=== PATIENT | male | born 1955 | race Two or more races ===

== ENCOUNTER 2021-02-06 14:08 | Inpatient (IN) | payer MEDICARE, OTHER ==
[~2021-02-06] VITALS: Ht 144.8 cm; Wt 72.1 kg
[2021-02-06] MEDS ORDERED: BISA5TAB10 PO (15:03)
[2021-02-06] MEDS ORDERED: MIRT-90 PO (15:03)
[2021-02-06] MEDS ORDERED: BUSP5TAB3 PO (15:03)
[2021-02-06] MEDS ORDERED: MULT-754 PO (15:03)
[2021-02-06] MEDS ORDERED: GABA-532 PO (15:03)
[2021-02-06] MEDS ORDERED: DOCU-141 PO (15:03)
[2021-02-06] MEDS ORDERED: INSU100V3 SQ (15:03)
[2021-02-06] MEDS ORDERED: ACET-868 PO ×2 (15:03)
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
--- NOTE | 2021-02-06 15:31 | NUR ---
PHLEBATOMIST AT THE BEDSIDE
[2021-02-06 15:49] LABS: CARBON DIOXIDE 29 mmol/L (21-32); CHLORIDE 108 mmol/L (98-107); CREATININE 1.1 mg/dL (0.6-1.3); GLUCOSE 90 mg/dL (74-106); POTASSIUM 4.1 mmol/L (3.5-5.1); SODIUM SERUM 146 mmol/L (136-145); UREA NITROGEN, BLOOD 16 mg/dL (7-18)
[2021-02-06 15:50] LABS: BASOPHILS # (AUTO) 0.2 K/uL (0.0-0.2); BASOPHILS % (AUTO) 2.4 % (0.0-2.0); EOSINOPHILS % (AUTO) 0.3 % (0.0-6.0); HEMATOCRIT 45 % (39-51); HEMOGLOBIN 14.7 g/dL (13.5-17.5); LYMPHOCYTES # (AUTO) 1.9 K/uL (0.8-4.8); LYMPHOCYTES % (AUTO) 28.1 % (20.0-44.0); MEAN CORPUSCULAR HGB CONC 33 g/dl (31.0-36.0); MEAN CORPUSCULAR VOLUME 96 fL (80-96); MONOCYTES # (AUTO) 0.4 K/uL (0.1-1.30); MONOCYTES % (AUTO) 6.5 % (2.0-12.0); NEUTROPHILS # (AUTO) 4.3 K/uL (1.8-8.9); NEUTROPHILS % (AUTO) 62.7 % (43.0-81.0); PLATELET COUNT (AUTO) 222 K/uL (150-450); RED BLOOD CELL COUNT(AUTO) 4.69 MIL/uL (4.5-6.0); WHITE BLOOD COUNT (AUTO) 6.8 K/uL (4.3-11.0)
--- NOTE | 2021-02-06 15:51 | NUR ---
MOVE SHEET SUBMITTED AND CALLED FOR BED.
[2021-02-06 15:55] LABS: ALANINE AMINOTRANSFERASE 21 U/L (12-78); ALBUMIN 3.6 g/dL (3.4-5.0); ALCOHOL, BLOOD < 3 mg/dL (0-0); ALKALINE PHOSPHATASE 74 U/L (46-116); ASPARTATE AMINOTRANSFERASE 18 U/L (15-37); BILIRUBIN,DIRECT 0.1 mg/dL (0.0-0.2); BILIRUBIN,TOTAL 0.4 mg/dL (0.2-1.0); TOTAL PROTEIN, SERUM 7.3 g/dL (6.4-8.2)
[2021-02-06 16:38] LABS: ACETAMINOPHEN < 2 ug/ml (10-30)
--- NOTE | 2021-02-06 18:25 | NUR ---
KRISTEN BASS [phone]
--- NOTE | 2021-02-06 19:21 | NUR ---
REPORT GIVEN TO NURSE GILL
--- NOTE | 2021-02-06 20:25 | NUR ---
REPORT GIVEN TO SALO VELA
[2021-02-06 21:00] VITALS: BP 118/71
[2021-02-06] MEDS ORDERED: BLOOD SUGAR DIAGNOSTIC 1 EACH STRIP IN ONE (21:30)
[2021-02-06] MEDS ORDERED: ACETAMINOPHEN 325 MG TABLET PO PRN (21:30)
[2021-02-06] MEDS ORDERED: MAGNESIUM HYDROXIDE 30 ML UDC PO PRN (21:30)
[2021-02-06] MEDS ORDERED: MAG HYDROX/AL HYDROX/SIMETH 30 ML UDC PO PRN (21:30)
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
[2021-02-06] MEDS ORDERED: BISACODYL (5 MG) 5 MG TABLET.DR PO PRN (22:00)
[2021-02-06] MEDS ORDERED: DEXTROSE 50%-WATER 50 ML DISP.SYRIN IV PRN (22:00)
[2021-02-06] MEDS: BLOOD SUGAR DIAGNOSTIC 1 EACH STRIP IN SCH (22:15)
[2021-02-06] MEDS: INSULIN REGULAR, HUMAN 100 UNIT/ML 3 ML VIAL SQ PRN (22:18)
--- NOTE | 2021-02-06 22:18 | NUR ---
RN NOTE: REFUSED INSULIN PATIENT'S BLOOD SUGAR IS 149 MG/DL & REFUSED 2 UNITS OF SSI DESPITE OF RISKS AND BENEFITS EXPLANATIONS.
--- NOTE | 2021-02-07 05:41 | NUR ---
RN NOTE PATIENT SLEPT WELL AT NIGHT, REMAINS CONFUSED, RESTRICTED AND ISOLATIVE.
[2021-02-07 07:05] LABS: CHOLESTEROL 196 mg/dL (<200); HDL CHOLESTEROL 56 mg/dL (40-60); LDL 124 mg/dL (0-99); TRIGLYCERIDES 88 mg/dL (30-150)
[2021-02-07 07:08] LABS: ALBUMIN 3.3 g/dL (3.4-5.0); BILIRUBIN,TOTAL 0.9 mg/dL (0.2-1.0); CALCIUM, SERUM 9.2 mg/dL (8.5-10.1); CREATININE 1.1 mg/dL (0.6-1.3); POTASSIUM 3.7 mmol/L (3.5-5.1)
--- NOTE | 2021-02-07 07:19 | NUR ---
RN NOTE CALLED PATIENT'S DAUGHTER SKIP AT [phone] AND LEFT A VOICEMAIL REGARDING PATIENT'S ADMISSION.
--- NOTE | 2021-02-07 07:29 | NUR ---
PT REFUSES ACCU CHECK. PT REFUSES VITALS.
[2021-02-07] MEDS: BLOOD SUGAR DIAGNOSTIC 1 EACH STRIP IN SCH ×4 (07:30→22:00)
[2021-02-07] MEDS: MULTIVIT W/MINERALS 1 TAB TABLET PO SCH (08:22)
[2021-02-07] MEDS: DOCUSATE SODIUM 100 MG CAPSULE PO SCH (08:22)
--- NOTE | 2021-02-07 09:00 | NUR ---
PT REFUSES AM MEDS. WILL CONTINUE TO MONITOR.
--- NOTE | 2021-02-07 09:41 | NUR ---
TRACI Initial Discharge Plan: Patient currently resides at [facility]. TRACI contacted Alexys parnell if pt is welcomed back and will let this SW know if pt is accepted back. SW will coordinate discharge with family and MD.
--- NOTE | 2021-02-07 09:42 | NUR ---
Treatment Plan: Pt unable to sign treatment plan. Pt is very confused.
[2021-02-07] MEDS: DIVALPROEX SODIUM 125 MG CAP.SPRINK PO SCH ×3 (10:40→16:48)
--- NOTE | 2021-02-07 16:50 | NUR ---
PT REFUSES ACCU CHECK. PT REFUSES PM MEDS. WILL CONTINUE TO MONITOR.
--- NOTE | 2021-02-07 20:26 | NUR ---
RN OPENING NOTE: RECEIVED PATIENT RESTING IN BED AND NOTED TO BE WALKING AROUND LATER. NO ACUTE S/S OF DISTRESS NOTED. NO C/O PAIN VERBALIZED AT THIS TIME. PT REFUSED PM VITALS. PATIENT IS A & O X 1, CONFUSED, QUIET, RESTRICTED, WITHDRAWN, FLAT AFFECT, REFUSES TO ANSWER ANY QUESTION, REFUSED SNACKS WHEN OFFERED AND WALKED AWAY, UNCOOPERATIVE, GUARDED, BED IN LOW AND LOCKED POSITION, SIDE RAILS UP X2. WILL CONTINUE TO MONITOR Q 15 MINUTES FOR SAFETY AND BEHAVIOR.
[2021-02-07] MEDS: MIRTAZAPINE 15 MG TABLET PO SCH (21:14)
[2021-02-07] MEDS: GABAPENTIN 300 MG CAPSULE PO SCH (21:14)
[2021-02-07] MEDS: TEMAZEPAM 7.5 MG CAPSULE PO PRN (22:12)
--- NOTE | 2021-02-07 22:13 | NUR ---
RN NOTE: INSOMNIA PATIENT VERBALIZED THAT HE IS UNABLE TO SLEEP AND KEEP PACING IN THE HALLWAY. PRN RESTORIL 7.5 MG 1 CAP PO ADMINISTERED. WILL CONTINUE TO MONITOR.
--- NOTE | 2021-02-07 22:14 | NUR ---
RN NOTE: REFUSED ACCU CHECK PATIENT REFUSED ACCU CHECK X 3 DESPITE OF RISKS AND BENEFITS EXPLANATIONS, UNCOOPERATIVE AND EASILY AGITATED, WALKS AWAY WHEN REDIRECTED.
[2021-02-08] MEDS: BLOOD SUGAR DIAGNOSTIC 1 EACH STRIP IN SCH ×4 (07:51→21:34)
[2021-02-08] MEDS: INSULIN REGULAR, HUMAN 100 UNIT/ML 3 ML VIAL SQ PRN ×3 (07:52→17:25)
[2021-02-08 08:00] VITALS: BP 130/68
[2021-02-08] MEDS: DIVALPROEX SODIUM 125 MG CAP.SPRINK PO SCH ×3 (08:15→16:27)
[2021-02-08] MEDS: DOCUSATE SODIUM 100 MG CAPSULE PO SCH (08:15)
[2021-02-08] MEDS: MULTIVIT W/MINERALS 1 TAB TABLET PO SCH (08:15)
[2021-02-08 16:00] VITALS: BP 115/75
[2021-02-08] MEDS: MIRTAZAPINE 15 MG TABLET PO SCH (21:34)
[2021-02-08] MEDS: GABAPENTIN 300 MG CAPSULE PO SCH (21:34)
[2021-02-08] MEDS: TEMAZEPAM 7.5 MG CAPSULE PO PRN (21:34)
[2021-02-09] MEDS: BLOOD SUGAR DIAGNOSTIC 1 EACH STRIP IN SCH ×4 (07:35→21:16)
[2021-02-09 08:00] VITALS: BP 130/70
[2021-02-09] MEDS: DIVALPROEX SODIUM 125 MG CAP.SPRINK PO SCH ×3 (08:33→16:06)
[2021-02-09] MEDS: MULTIVIT W/MINERALS 1 TAB TABLET PO SCH (08:33)
[2021-02-09] MEDS: DOCUSATE SODIUM 100 MG CAPSULE PO SCH (08:33)
[2021-02-09 16:00] VITALS: BP 122/75
[2021-02-09] MEDS: INSULIN REGULAR, HUMAN 100 UNIT/ML 3 ML VIAL SQ PRN (16:49)
--- NOTE | 2021-02-09 19:42 | NUR ---
Patient currently resting in chair. No distress noted. Chest rise and fall even and unlabored. Will monitor for behaviors.
[2021-02-09 20:00] VITALS: BP 142/86
--- NOTE | 2021-02-09 20:00 | NUR ---
Patient refused 2000 temperature despite explaining to patient procedure and importance.
[2021-02-09] MEDS: MIRTAZAPINE 15 MG TABLET PO SCH (21:15)
[2021-02-09] MEDS: GABAPENTIN 300 MG CAPSULE PO SCH (21:16)
[2021-02-10] MEDS: BLOOD SUGAR DIAGNOSTIC 1 EACH STRIP IN SCH ×4 (07:58→21:26)
[2021-02-10 08:00] VITALS: BP 127/74
[2021-02-10] MEDS: DOCUSATE SODIUM 100 MG CAPSULE PO SCH (08:01)
[2021-02-10] MEDS: LORAZEPAM 0.5 MG TABLET PO PRN (08:01)
[2021-02-10] MEDS: DIVALPROEX SODIUM 125 MG CAP.SPRINK PO SCH ×3 (08:01→16:48)
[2021-02-10] MEDS: MULTIVIT W/MINERALS 1 TAB TABLET PO SCH (08:01)
[2021-02-10 16:00] VITALS: BP 142/73
[2021-02-10 20:31] VITALS: BP 116/74
[2021-02-10] MEDS: MIRTAZAPINE 15 MG TABLET PO SCH (21:11)
[2021-02-10] MEDS: GABAPENTIN 300 MG CAPSULE PO SCH (21:11)
[2021-02-10] MEDS: TEMAZEPAM 7.5 MG CAPSULE PO PRN (22:30)
--- NOTE | 2021-02-10 22:30 | NUR ---
GPS-RN NOTES: INSOMNIA PATIENT UNABLE TO SLEEP. PRN RESTORIL 7.5MG PO GIVEN ORDERED. WILL CONTINUE TO MONITOR.
[2021-02-11] MEDS: BLOOD SUGAR DIAGNOSTIC 1 EACH STRIP IN SCH ×4 (07:42→21:28)
[2021-02-11 08:00] VITALS: BP 128/74
[2021-02-11] MEDS: MULTIVIT W/MINERALS 1 TAB TABLET PO SCH (08:36)
[2021-02-11] MEDS: DOCUSATE SODIUM 100 MG CAPSULE PO SCH (08:36)
[2021-02-11] MEDS: DIVALPROEX SODIUM 125 MG CAP.SPRINK PO SCH ×3 (08:37→16:35)
--- NOTE | 2021-02-11 09:00 | NUR ---
RN NOTE- PT ALERT CONFUSED FLAT AFFECT MED COMPLIANT
[2021-02-11 16:00] VITALS: BP 109/75
--- NOTE | 2021-02-11 19:35 | NUR ---
GPS RN NOTES RECEIVED INSIDE HIS ROOM,WALKING AROUND WITH FLAT AFFECT,REFUSED TO ANSWER QUESTION,POOR EYE CONTACT,UNPREDICTABLE.WILL CONTINUE TO MONITOR BEHAVIOR
--- NOTE | 2021-02-11 19:40 | NUR ---
GPS RN NOTES FAMILY CAME THIS TIME AND SHOWER PATIENT.
[2021-02-11 20:17] VITALS: BP 110/55
[2021-02-11] MEDS: GABAPENTIN 300 MG CAPSULE PO SCH (21:28)
[2021-02-11] MEDS: MIRTAZAPINE 15 MG TABLET PO SCH (21:28)
--- NOTE | 2021-02-11 22:00 | NUR ---
GPS RN NOTES REFUSED BLOOD SUGAR CHECK AND REGULAR SCHEDULED MEDICATIONS
[2021-02-12] MEDS: TEMAZEPAM 7.5 MG CAPSULE PO PRN ×2 (00:01→22:18)
--- NOTE | 2021-02-12 00:01 | NUR ---
GPS RN NOTES AWAKE,PACING INSIDE HIS ROOM,OFFERED SLEEPING AND HE TOOKMHIS RESTORIL 7.5MG PO ORDERED.
--- NOTE | 2021-02-12 07:00 | NUR ---
GPS RN NOTES STILL ON BED SLEEPING,PACING IN THE ROOM WHEN AWAKE.UNPREDICTABLE.
[2021-02-12] MEDS: BLOOD SUGAR DIAGNOSTIC 1 EACH STRIP IN SCH ×4 (07:30→22:17)
[2021-02-12 08:00] VITALS: BP 133/79
[2021-02-12] MEDS: DIVALPROEX SODIUM 125 MG CAP.SPRINK PO SCH ×3 (08:36→16:55)
[2021-02-12] MEDS: MULTIVIT W/MINERALS 1 TAB TABLET PO SCH (08:36)
[2021-02-12] MEDS: LORAZEPAM 0.5 MG TABLET PO PRN (08:36)
[2021-02-12] MEDS: DOCUSATE SODIUM 100 MG CAPSULE PO SCH (08:36)
[2021-02-12 16:00] VITALS: BP 113/75
[2021-02-12 20:00] VITALS: BP 114/71
[2021-02-12] MEDS: INSULIN REGULAR, HUMAN 100 UNIT/ML 3 ML VIAL SQ PRN (22:17)
[2021-02-12] MEDS: MIRTAZAPINE 15 MG TABLET PO SCH (22:18)
[2021-02-12] MEDS: GABAPENTIN 300 MG CAPSULE PO SCH (22:18)
--- NOTE | 2021-02-12 22:18 | NUR ---
GPS RN NOTE - INSOMNIA PT NOTED WITH TALKING TO SELF AND DIFFICULTY FALLING ASLEEP. ADMINISTERED RESTORIL ORDERED. WILL REASSESS FOR SLEEP IN 1 HOUR.
[2021-02-13] MEDS: LORAZEPAM 0.5 MG TABLET PO PRN (00:35)
--- NOTE | 2021-02-13 00:35 | NUR ---
GPS RN NOTE - AGITATION AND RESTLESSNESS PT NOTED WITH AGITATIONS, RESTLESSNESS, AND UNPREDICTABLE BEHAVIOR; RESTORIL NOT EFFECTIVE. PT SUDDENLY TOOK RN'S BELONGINGS AND WALKED AWAY WITH IT. PT ATTEMPTED TO PUSH DOOR CLOSE WITH STATE HISTORICAL SOCIETY DIRECTOR & RN IN PT'S ROOM. 2 SECURITY CAME TO ASSIST PATIENT TO SIT IN GERICHAIR. PT SITTING IN GERICHAIR AND ATIVAN ADMINISTERED ORDERED. WILL MONITOR FOR AGITATION AND RESTLESSNESS. PT SITTING COMFORTABLE IN GERICHAIR AT THIS TIME.
--- NOTE | 2021-02-13 06:28 | NUR ---
GPS RN NOTE PT A/OX1 WITH DISORGANIZED THOUGHTS. TOLERATING R/A WELL. PT SLEEPING AT THIS TIME. BS AT 0627 IS 85. ALL NEEDS MET AT THIS TIME. SAFETY MEASURES IN PLACE. PT IN STABLE CONDITION, WILL ENDORSE PLAN OF CARE TO ONCOMING MORNING RN.
[2021-02-13] MEDS: INSULIN REGULAR, HUMAN 100 UNIT/ML 3 ML VIAL SQ PRN ×2 (06:50→17:27)
[2021-02-13] MEDS: BLOOD SUGAR DIAGNOSTIC 1 EACH STRIP IN SCH ×4 (06:50→22:00)
--- NOTE | 2021-02-13 07:30 | NUR ---
PT RECEIVED RESTING COMFORTABLE IN BED. NO S/S OR C/O PAIN OR DISTRESS NOTED. SIDE RAILS UP X2, CALL LIGHT LEFT WITHIN REACH. WILL CONTINUE PLAN OF CARE.
[2021-02-13 08:00] VITALS: BP 105/62
[2021-02-13] MEDS: MULTIVIT W/MINERALS 1 TAB TABLET PO SCH (09:38)
[2021-02-13] MEDS: DOCUSATE SODIUM 100 MG CAPSULE PO SCH (09:38)
[2021-02-13] MEDS: DIVALPROEX SODIUM 125 MG CAP.SPRINK PO SCH ×3 (09:39→17:08)
[2021-02-13 16:00] VITALS: BP 130/69
--- NOTE | 2021-02-13 18:35 | NUR ---
CHANGE OF SHIFT REPORT PT RESTING COMFORTABLY IN BED. NO S/S OR C/O PAIN OR DISTRESS NOTED. SIDE RAILS UP X2. PT KEPT CLEAN, DRY, AND COMFORTABLE. NO SIGNIFICANT CHANGES SINCE PREVIOUS SHIFT. WILL GIVE REPORT TO OBDULIO LEONG.
--- NOTE | 2021-02-13 20:26 | NUR ---
GPS RN NOTES PATIENT REFUSED 8PM VITAL SIGNS CHECK. PATIENT'S IN NO ACUTE DISTRESS AT THAT TIME.
[2021-02-13] MEDS: MIRTAZAPINE 15 MG TABLET PO SCH ×2 (21:12→22:00)
[2021-02-13] MEDS: GABAPENTIN 300 MG CAPSULE PO SCH ×2 (21:14→22:00)
--- NOTE | 2021-02-13 22:08 | NUR ---
GPS RN NOTES PATIENT REFUSED SCHEDULED MEDICATIONS AT 2200 AND HS BLOOD SUGAR CHECK/INSULIN. RISKS HAVE BEEN EXPLAINED TO THE PATIENT. WILL CONTINUE TO MONITOR THE PATIENT.
--- NOTE | 2021-02-13 22:08 | NUR ---
GPS RN NOTES PATIENT REFUSED SCHEDULED MEDICATIONS AT 2200 AND HS BLOOD SUGAR CHECK. RISKS HAVE BEEN EXPLAINED TO THE PATIENT. WILL CONTINUE TO MONITOR THE PATIENT.
[2021-02-14] MEDS: BLOOD SUGAR DIAGNOSTIC 1 EACH STRIP IN SCH ×4 (07:30→22:29)
[2021-02-14 08:00] VITALS: BP 129/78
[2021-02-14] MEDS: DOCUSATE SODIUM 100 MG CAPSULE PO SCH (08:57)
[2021-02-14] MEDS: MULTIVIT W/MINERALS 1 TAB TABLET PO SCH (08:57)
[2021-02-14] MEDS: DIVALPROEX SODIUM 125 MG CAP.SPRINK PO SCH ×3 (08:57→16:54)
--- NOTE | 2021-02-14 08:58 | NUR ---
PATIENT REFUSED SCHEDULED MEDICATIONS AT 0900 AND HS BLOOD SUGAR CHECK/INSULIN. RISKS HAVE BEEN EXPLAINED TO THE PATIENT. WILL CONTINUE TO MONITOR THE PATIENT.
--- NOTE | 2021-02-14 12:00 | NUR ---
PT RIGHT ADVOCATE CONTACTED PT. PT RIGHT ADVOCATE UNABLE TO COMMUNICATE WITH PATIENT. PT RIGHT ADVOCATE SPOKE WITH RN AND ASKED TO RELAY PT THE FOLLOWING MESSAGE: "IF YOU FEEL THE NEED TO APPEAL THE HOLD COURT DECISION, PT HAS THE RIGHT TO DO SO". MESSAGE DELIVERED TO PT IN [place].
--- NOTE | 2021-02-14 12:05 | NUR ---
Court Hearing: Patient's court hearing for 2790 was today and it was upheld for GD and danger to others.
[2021-02-14 16:16] VITALS: BP 122/72
[2021-02-14 20:06] VITALS: BP 136/79
[2021-02-14] MEDS: GABAPENTIN 300 MG CAPSULE PO SCH (22:10)
[2021-02-14] MEDS: MIRTAZAPINE 15 MG TABLET PO SCH (22:10)
--- NOTE | 2021-02-14 22:30 | NUR ---
RN NOTES: PATIENT REFUSED MEDICATION AT 2200, BS CHECK, OFFERED SEVERAL TIMES ZAIN STRONGLY REFUSED.
[2021-02-15] MEDS: BLOOD SUGAR DIAGNOSTIC 1 EACH STRIP IN SCH ×4 (07:30→21:52)
[2021-02-15 08:00] VITALS: BP 119/78
[2021-02-15] MEDS: DOCUSATE SODIUM 100 MG CAPSULE PO SCH (09:00)
[2021-02-15] MEDS: DIVALPROEX SODIUM 125 MG CAP.SPRINK PO SCH (09:00)
[2021-02-15] MEDS: MULTIVIT W/MINERALS 1 TAB TABLET PO SCH (09:00)
[2021-02-15] MEDS ORDERED: OLANZAPINE 10 MG VIAL IM STA (09:23)
--- NOTE | 2021-02-15 09:25 | NUR ---
RN-NOTES PATIENT REFUSED ALL 0900AM MEDICATIONS INCLUDING DEPAKOTE SPRINKLE 250MG P.O,COLACE 100 MG P.O AND MULTI VIT. 1 TAB. EXPLAINED RISK AND BENEFITS BUT PATIENT GOT ANGRY WITH THREATENING GESTURE. DR. DAN AT BEDSIDE WITH VERBAL ORDER OF ZYPREXA 10MG IM STAT. NOTED AND CARRIED OUT.
[2021-02-15 16:00] VITALS: BP 121/81
--- NOTE | 2021-02-15 19:21 | NUR ---
RN-NOTES PATIENT REFUSED ACCU CHECK THIS SHIFT DESPITE EXPLANATIONS RISK AND BENEFITS. OFFERED X3
[2021-02-15] MEDS: OLANZAPINE ZYDIS 5 MG TAB.RAPDIS PO SCH (21:00)
[2021-02-15] MEDS: DIVALPROEX SODIUM 500 MG TABLET.DR PO SCH (21:00)
[2021-02-15] MEDS: GABAPENTIN 300 MG CAPSULE PO SCH (21:52)
--- NOTE | 2021-02-15 21:53 | NUR ---
GPS/CLINICAL SUPPORT NURSE NOTES: PT. REFUSED HS MEDS AND ACCUCHECK. OFFERED 3X. EXPLAINED RISK AND BENEFITS. PT. STILL REFUSED. WILL CONTINUE TO MONITOR.
[2021-02-16] MEDS: BLOOD SUGAR DIAGNOSTIC 1 EACH STRIP IN SCH ×4 (07:30→21:04)
[2021-02-16 08:00] VITALS: BP 126/85
[2021-02-16] MEDS: MULTIVIT W/MINERALS 1 TAB TABLET PO SCH (08:25)
[2021-02-16] MEDS: DOCUSATE SODIUM 100 MG CAPSULE PO SCH (08:25)
[2021-02-16] MEDS: OLANZAPINE ZYDIS 5 MG TAB.RAPDIS PO SCH ×3 (08:25→21:00)
[2021-02-16] MEDS: DIVALPROEX SODIUM 500 MG TABLET.DR PO SCH ×3 (08:26→21:00)
--- NOTE | 2021-02-16 17:02 | NUR ---
RN-NOTES PATIENT REFUSED ACCU CHECK THIS SHIFT DESPITE EXPLANATIONS RISK AND BENEFITS. OFFERED X3
[2021-02-16 19:53] VITALS: BP 140/77
[2021-02-16] MEDS: GABAPENTIN 300 MG CAPSULE PO SCH ×2 (21:04→21:37)
--- NOTE | 2021-02-16 22:00 | NUR ---
GPS-RN NOTES: PATIENT REFUSED BLOOD SUGAR TO BE CHECKED. DESPITE OF EXPLANATION GIVEN BY NURSE TO WHY IT IS IMPORTANT BUT PT CONTINUED TO REFUSE. WILL CONTINUE TO MONITOR.
[2021-02-16] MEDS: TEMAZEPAM 7.5 MG CAPSULE PO PRN (22:17)
--- NOTE | 2021-02-16 22:17 | NUR ---
PS-RN NOTES: INSOMNIA PATIENT IS UNABLE TO SLEEP. PRN RESTORIL 7.5MG PO GIVEN ORDERED. WILL CONTINUE TO MONITOR.
[2021-02-17] MEDS: BLOOD SUGAR DIAGNOSTIC 1 EACH STRIP IN SCH ×2 (07:30→12:00)
[2021-02-17 08:00] VITALS: BP 121/61
[2021-02-17] MEDS: OLANZAPINE ZYDIS 5 MG TAB.RAPDIS PO SCH (08:09)
[2021-02-17] MEDS: LORAZEPAM 0.5 MG TABLET PO PRN (08:09)
[2021-02-17] MEDS: DIVALPROEX SODIUM 500 MG TABLET.DR PO SCH (08:09)
[2021-02-17] MEDS: DOCUSATE SODIUM 100 MG CAPSULE PO SCH (08:09)
[2021-02-17] MEDS: MULTIVIT W/MINERALS 1 TAB TABLET PO SCH (08:09)
--- NOTE | 2021-02-17 08:12 | NUR ---
SW Discharge Note: Patient will be discharged to a locked care home facility to [facility] [address] [place] [address]; ([phone]). Please arrange ambulance transportation. Metal Turner spoke with Janeth, Security Associate at [facility]; ([phone]), who stated patient will be accepted at facility today. Patients daughter Aditya ([phone]) is aware and agreeable. Patient is alert and oriented x2, and is not able to plan for self-care at this time, but is willing to accept care provided for care at the facility. Patient denies any suicidal or homicidal ideations. Patient is aware and agreeable with discharge plans. Patient will continue to follow-up with her (Psychiatrist ) Dr. Gutierrez [address] [facility] [address], [place] [address]; ([phone]) and General Laborer Dr. Contreras [address] [facility] [address], [place] [address]; ([phone]). Patient presents with euthymic mood and congruent affect.
--- NOTE | 2021-02-17 12:46 | NUR ---
GPS/RN REPORT GIVEN TO SANTY LEONG AT [facility] [phone]
--- NOTE | 2021-02-17 13:45 | NUR ---
GPS/RN PT DISCHARGED TO [facility] VIA AMBULANCE. EXIT CARE AND PRESCRIPTIONS PROVIDED. PT REFUSED TO SIGN,. PT IS AMBULATORY , VSS, PROPERTY RETURNED NO SI OR HI AT THE TIME OF D/C REPORTED
== END 2021-02-17 13:45 | DRG 885 ==
LOC: ER 14:14 → GPS 20:02
PROVIDERS: ADMIT Psychiatry & Neurology Psychosomatic Medicine; ATTEND Nurse Practitioner Acute Care
DX: F39 Unspecified mood [affective] disorder (principal); F01.50 Vascular dementia, unspecified severity, without behavioral disturbance, psychotic disturbance, mood disturbance, and anxiety; E11.9 Type 2 diabetes mellitus without complications; Z79.4 Long term (current) use of insulin; G20 Parkinson's disease; F32.A Depression, unspecified; F41.9 Anxiety disorder, unspecified; Z68.34 Body mass index [BMI] 34.0-34.9, adult; F29 Unspecified psychosis not due to a substance or known physiological condition; F25.9 Schizoaffective disorder, unspecified; Z73.6 Limitation of activities due to disability; E66.9 Obesity, unspecified; F02.80 Dementia in other diseases classified elsewhere, unspecified severity, without behavioral disturbance, psychotic disturbance, mood disturbance, and anxiety
CPT/HCPCS: 36415; 80048-TC; 80053-TC; 80061-TC; 80076-TC; 80164-TC; 82962-TC; 85025-TC; 87081-TC; 97112-TC; 97116-TC; 97530-TC; C9803; G0480; J1815; J3490

== ENCOUNTER 2022-04-18 16:06 | Inpatient (IN) | payer MEDICARE, OTHER ==
[~2022-04-18] VITALS: Ht 167.6 cm; Wt 67.1 kg
[~2022-04-18 16:06] MED LIST: ACET-868 PO; BISA5TAB10 PO; BUSP5TAB3 PO; DOCU-141 PO; GABA-532 PO; INSU100V3 SQ; MIRT-90 PO; MULT-754 PO
--- NOTE | 2022-04-18 16:30 | NUR ---
jennie WILLETT frm [facility] for medical/psych eval. increase confusion andressing and wandering in the hallway. Kept comfortable, will continue to monitor accordingly.
--- NOTE | 2022-04-18 17:27 | NUR ---
covid swab collected and sent to lab.
[2022-04-18 17:35] LABS: BASOPHILS % (AUTO) 0.4 % (0.0-2.0); EOSINOPHILS % (AUTO) 0.5 % (0.0-6.0); HEMATOCRIT 44 % (39-51); HEMOGLOBIN 14.3 g/dL (13.5-17.5); LYMPHOCYTES # (AUTO) 1.7 K/uL (0.8-4.8); LYMPHOCYTES % (AUTO) 28.6 % (20.0-44.0); MEAN CORPUSCULAR HGB CONC 33 g/dl (31.0-36.0); MEAN CORPUSCULAR VOLUME 95 fL (80-96); MONOCYTES # (AUTO) 0.4 K/uL (0.1-1.30); MONOCYTES % (AUTO) 7.6 % (2.0-12.0); NEUTROPHILS # (AUTO) 3.7 K/uL (1.8-8.9); NEUTROPHILS % (AUTO) 62.9 % (43.0-81.0); PLATELET COUNT (AUTO) 211 K/uL (150-450); RED BLOOD CELL COUNT(AUTO) 4.63 MIL/uL (4.5-6.0); WHITE BLOOD COUNT (AUTO) 5.8 K/uL (4.3-11.0)
[2022-04-18 17:49] LABS: CALCIUM, SERUM 9.1 mg/dL (8.5-10.1); CARBON DIOXIDE 28 mmol/L (21-32); CHLORIDE 107 mmol/L (98-107); GLUCOSE 145 mg/dL (74-106); POTASSIUM 4.3 mmol/L (3.5-5.1); SODIUM SERUM 142 mmol/L (136-145); UREA NITROGEN, BLOOD 15 mg/dL (7-18)
[2022-04-18 17:59] LABS: ALANINE AMINOTRANSFERASE 19 U/L (12-78); ALBUMIN 3.3 g/dL (3.4-5.0); ALCOHOL, BLOOD < 3 mg/dL (0-0); ALKALINE PHOSPHATASE 58 U/L (46-116); ASPARTATE AMINOTRANSFERASE 15 U/L (15-37); BILIRUBIN,DIRECT 0.1 mg/dL (0.0-0.2); BILIRUBIN,TOTAL 0.4 mg/dL (0.2-1.0); TOTAL PROTEIN, SERUM 7.3 g/dL (6.4-8.2)
[2022-04-18 18:00] LABS: ACETAMINOPHEN 0 ug/ml (10-30)
--- NOTE | 2022-04-18 22:51 | NUR ---
5150 HOLD: 04/18/2021 @2226
--- NOTE | 2022-04-18 23:00 | NUR ---
REPORT GIVEN TO ROMELIA LEONG FOR TIFFANIE
[2022-04-18 23:45] VITALS: BP 137/75
[2022-04-18 23:48] VITALS: BP 137/75
[2022-04-19] MEDS ORDERED: BLOOD SUGAR DIAGNOSTIC 1 EACH STRIP IN ONE
[2022-04-19] MEDS ORDERED: MAGNESIUM HYDROXIDE 30 ML UDC PO PRN
[2022-04-19] MEDS ORDERED: ACETAMINOPHEN 325 MG TABLET PO PRN
[2022-04-19] MEDS ORDERED: MAG HYDROX/AL HYDROX/SIMETH 30 ML UDC PO PRN
--- NOTE | 2022-04-19 00:06 | NUR ---
TRANSFERRED TO 212 IN STABLE CONDITION
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
[2022-04-19] MEDS ORDERED: DEXTROSE 50%-WATER 50 ML DISP.SYRIN IV PRN (00:30)
[2022-04-19] MEDS: GABAPENTIN 300 MG CAPSULE PO SCH ×2 (01:18→20:52)
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
--- NOTE | 2022-04-19 06:24 | NUR ---
GPS RN NOTE PATIENT IN BED ASLEEP, EASY TO AROUSE. A/O X1, CONFUSED, GUARDED, LABILE, QUIET AND STARES AT SPACE. SATURATING WELL IN ROOM AIR. NO CARDIAC OR RESPIRATORY DISTRESS. ALL DUE MEDS GIVEN AND NEEDS ATTENDED. SAFETY PRECAUTIONS MAINTAINED. WILL CONTINUE TO MONITOR Q15 MINS FOR SAFETY AND BEHAVIOR. WILL ENDORSE TO NEXT SHIFT FOR CONTINUITY OF CARE.
[2022-04-19] MEDS: BLOOD SUGAR DIAGNOSTIC 1 EACH STRIP IN SCH ×4 (06:51→20:51)
[2022-04-19] MEDS: INSULIN REGULAR, HUMAN 100 UNIT/ML 3 ML VIAL SQ PRN ×2 (06:51→17:28)
--- NOTE | 2022-04-19 06:51 | NUR ---
BS 88. NO INSULIN COVERAGE GIVEN.
[2022-04-19 08:00] VITALS: BP 124/65
[2022-04-19] MEDS: MULTIVITAMIN/LUTEIN/MINERALS 1 TAB PO SCH (08:47)
[2022-04-19] MEDS: DOCUSATE SODIUM 100 MG CAPSULE PO SCH (08:47)
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
--- NOTE | 2022-04-19 11:54 | NUR ---
TRACI Initial Discharge Note: Patient will be discharged to a locked alf facility to [address] [address]; ([phone]). TRACI spoke with Kacie Trujillo ([phone]) who stated that pt is welcomed back. TRACI will discuss with pt's daughter Sheir ([phone]) for discharge/treatment plan. TRACI will work with the family, pt, and MD to help coordinate appropriate discharge.
--- NOTE | 2022-04-19 11:55 | NUR ---
Treatment Plan: Pt refused to sign treatment plan and was very confused.
--- NOTE | 2022-04-19 13:38 | NUR ---
TRACI Family Contact: TRACI contacted pt's daughter Sheri ([phone]) to discuss treatment/discharge plan. Daughter stated that she is the DPOA but does not have the paperworks. She requested for this repairer typewriter to contact [facility] to send the documents. She would want pt back to [place] when stable.
--- NOTE | 2022-04-19 13:39 | NUR ---
Facility Contact: Per daughter's request, SW contacted [facility] ([phone]) requested to fax DPOA paperwork.
[2022-04-19 15:15] LABS: BILIRUBIN,TOTAL 0.4 mg/dL (0.2-1.0); CALCIUM, SERUM 8.3 mg/dL (8.5-10.1); CHOLESTEROL 157 mg/dL (<200); CREATININE 0.9 mg/dL (0.6-1.3); HDL CHOLESTEROL 52 mg/dL (40-60); LDL 98 mg/dL (0-99); TOTAL PROTEIN, SERUM 6.7 g/dL (6.4-8.2); TRIGLYCERIDES 134 mg/dL (30-150)
[2022-04-19 16:00] VITALS: BP 113/75
[2022-04-19] MEDS: OLANZAPINE 2.5 MG TABLET PO SCH (17:23)
--- NOTE | 2022-04-19 18:00 | NUR ---
RN NOTES BS-167 MG/DL COVERAGE GIVEN, ASSIST EATING, DUE MEDICATION ADMINISTERED CRUSHED, PATIENT CONFUSED, AMBULATORY SAFETY PRECAUTION MAINTAINED , BED ALARM ON.
--- NOTE | 2022-04-19 19:45 | NUR ---
GPS RN NOTES RECEIVED LYING ON BED,CONFUSED,AVOID EYE CONTACTS,WITH LIMITED VERBAL RESPONSE,AMBULATE WITH STEADY GAITMED COMPLIANT.WILL CONTINUE TO MONITOR BEHAVIOR AND MANAGE ACCORDINGLY.
[2022-04-19 20:00] VITALS: BP 131/68
--- NOTE | 2022-04-19 20:45 | NUR ---
GPS RN NOTES ACCU-CHECK BLOOD SUGAR CHECK 102,NO INSULIN COVERAGE.
[2022-04-19] MEDS: DIVALPROEX SODIUM 500 MG TABLET.DR PO SCH (20:50)
[2022-04-20] MEDS: BLOOD SUGAR DIAGNOSTIC 1 EACH STRIP IN SCH ×4 (07:54→22:17)
[2022-04-20 08:00] VITALS: BP 145/72
[2022-04-20] MEDS: OLANZAPINE 2.5 MG TABLET PO SCH ×2 (08:52→16:14)
[2022-04-20] MEDS: DIVALPROEX SODIUM 500 MG TABLET.DR PO SCH ×2 (08:52→21:51)
[2022-04-20] MEDS: MULTIVITAMIN/LUTEIN/MINERALS 1 TAB PO SCH (08:52)
[2022-04-20] MEDS: DOCUSATE SODIUM 100 MG CAPSULE PO SCH (08:52)
[2022-04-20] MEDS ORDERED: OLAN2.5T3 PO (09:24)
[2022-04-20] MEDS ORDERED: MELA3TAB41 PO (09:24)
[2022-04-20] MEDS ORDERED: MULT-447 PO (09:24)
[2022-04-20] MEDS ORDERED: DEXT38GE12 PO (09:24)
[2022-04-20] MEDS ORDERED: MAGN400O6 PO (09:24)
[2022-04-20] MEDS ORDERED: DIVA125C2 PO (09:24)
[2022-04-20] MEDS ORDERED: ACET-2605 PO (09:24)
[2022-04-20] MEDS ORDERED: GLUC1KIT IM (09:24)
[2022-04-20] MEDS ORDERED: MAG30ORA PO (09:24)
[2022-04-20] MEDS: INSULIN REGULAR, HUMAN 100 UNIT/ML 3 ML VIAL SQ PRN ×3 (11:34→22:18)
[2022-04-20 16:00] VITALS: BP 104/71
--- NOTE | 2022-04-20 18:37 | NUR ---
RN NOTE PATIENT ASLEEP IN BED. STAYED IN HIS ROOM THROUGHOUT THE SHIFT. STABLE IN ROOM AIR, BREATHING EVEN AND UNLABORED. NO S/SX OF PAIN. REFUSED TO PARTICIPATE IN GROUP ACTIVITIES. PATIENT COMPLIANT WITH MEDS. ACCUCHECKS DONE, NO EPISODES OF HYPO/HYPERGLYCEMIA NOTED. PATIENT REMAINS GUARDED, ISOLATIVE, LABILE, WITH FLAT AFFECT. ALL NEEDS ATTENDED TO. ATE 100% OF DINNER WITH ASSIST. WILL ENDORSE TO NEXT SHIFT FOR CONTINUITY OF CARE.
--- NOTE | 2022-04-20 19:50 | NUR ---
windscreen fitter notes: Received pt in his room awake laying in bed. a/o x1. confused. on room air. breathing even and unlabored. no s/s of distress noted. ambulatory. will continue to monitor for safety and behavior.
[2022-04-20 20:00] VITALS: BP 111/72
[2022-04-20] MEDS: GABAPENTIN 300 MG CAPSULE PO SCH (21:51)
--- NOTE | 2022-04-20 22:15 | NUR ---
associate application developer notes: accu-check done. BS 104. no coverage given
--- NOTE | 2022-04-21 06:00 | NUR ---
surgical training specialist notes: Patient sleeping at this time. no acute distress noted. a/o x1. confused. need redirecting. med compliant. meds administered crushed. ambulatory. needs anticipated and rendered. safety measures maintained.
--- NOTE | 2022-04-21 07:29 | NUR ---
GPS RN OPENING NOTE RECEIVED PT IN BED ASLEEP, EASILY AROUSED. A/O X1, CONFUSED. REORIENTED PT NEEDED. ON ROOM AIR, TOLERATING WELL. NO SOB NOTED. NOT IN ANY SIGNS OF RESPIRATORY DISTRESS NOTED. STABLE ON ROOM AIR, BREATHING EVEN AND UNLABORED. SAFETY MEASURES IN PLACE AT ALL TIMES: BED IN LOWEST AND LOCKED POSITION, BED SIDE RAILS UPX3, BED ALARM ON, AND CALL LIGHT WITHIN REACH. WILL CONTINUE TO MONITOR PT.
[2022-04-21] MEDS: BLOOD SUGAR DIAGNOSTIC 1 EACH STRIP IN SCH ×4 (07:56→21:43)
[2022-04-21] MEDS: INSULIN REGULAR, HUMAN 100 UNIT/ML 3 ML VIAL SQ PRN ×3 (07:57→17:13)
[2022-04-21 08:00] VITALS: BP 115/68
[2022-04-21] MEDS: OLANZAPINE 2.5 MG TABLET PO SCH ×2 (08:47→16:08)
[2022-04-21] MEDS: MULTIVITAMIN/LUTEIN/MINERALS 1 TAB PO SCH (08:47)
[2022-04-21] MEDS: DOCUSATE SODIUM 100 MG CAPSULE PO SCH (08:47)
[2022-04-21] MEDS: DIVALPROEX SODIUM 500 MG TABLET.DR PO SCH ×2 (08:47→20:16)
[2022-04-21 16:00] VITALS: BP 122/79
[2022-04-21 20:00] VITALS: BP 109/67
[2022-04-21] MEDS: GABAPENTIN 300 MG CAPSULE PO SCH (21:43)
--- NOTE | 2022-04-21 22:00 | NUR ---
RN NOTES BLOOD SUGAR CHECKED AT 2200. THE RESULT WAS 107. NO INSULIN COVERAGE.
[2022-04-22] MEDS: BLOOD SUGAR DIAGNOSTIC 1 EACH STRIP IN SCH ×4 (06:32→21:20)
--- NOTE | 2022-04-22 06:53 | NUR ---
RN NOTES BLOOD SUGAR CHECKED FOR MORNING, THE RESULT WAS 98. NO INSULIN COVERAGE.
[2022-04-22 08:00] VITALS: BP 128/55
[2022-04-22] MEDS: MULTIVITAMIN/LUTEIN/MINERALS 1 TAB PO SCH (08:44)
[2022-04-22] MEDS: DOCUSATE SODIUM 100 MG CAPSULE PO SCH (08:44)
[2022-04-22] MEDS: DIVALPROEX SODIUM 500 MG TABLET.DR PO SCH ×2 (08:44→21:19)
[2022-04-22] MEDS: OLANZAPINE 2.5 MG TABLET PO SCH ×2 (08:44→16:12)
--- NOTE | 2022-04-22 09:00 | NUR ---
RN NOTE- PT WITHDRAWN, PARANOID, PSYCHOTIC THOUGH DIRECTABLE AND MED COMPLIANT, BLUNTED AFFECT, ISOLATIVE
[2022-04-22] MEDS: INSULIN REGULAR, HUMAN 100 UNIT/ML 3 ML VIAL SQ PRN (11:53)
[2022-04-22 16:00] VITALS: BP 100/59
--- NOTE | 2022-04-22 19:32 | NUR ---
GPS RN NOTES RECEIVED LAYING ON BED, A/O X1,FLAT AFFECT,AVOIDS EYE CONTACT,MED COMPLIANT,STAYS IN THE ROOM MOST OF THE TIME.RREDIRECTABLE.WILL CONTINUE TO MONITOR BEHAVIOR.
[2022-04-22 20:00] VITALS: BP 100/56
[2022-04-22 20:22] VITALS: BP 100/56
[2022-04-22] MEDS: GABAPENTIN 300 MG CAPSULE PO SCH (21:19)
--- NOTE | 2022-04-22 22:00 | NUR ---
GPS RN NOTES ACCU-CHECK BLOOD SUGAR CHECK 109,NO INSULIN COVERAGE.
[2022-04-23] MEDS: BLOOD SUGAR DIAGNOSTIC 1 EACH STRIP IN SCH ×4 (07:44→21:32)
[2022-04-23 08:00] VITALS: BP 97/69
[2022-04-23] MEDS: MULTIVITAMIN/LUTEIN/MINERALS 1 TAB PO SCH (08:39)
[2022-04-23] MEDS: DOCUSATE SODIUM 100 MG CAPSULE PO SCH (08:39)
[2022-04-23] MEDS: OLANZAPINE 2.5 MG TABLET PO SCH ×2 (08:39→16:24)
[2022-04-23] MEDS: DIVALPROEX SODIUM 500 MG TABLET.DR PO SCH ×2 (08:39→21:03)
[2022-04-23] MEDS: INSULIN REGULAR, HUMAN 100 UNIT/ML 3 ML VIAL SQ PRN ×2 (11:31→16:52)
[2022-04-23 16:00] VITALS: BP 107/61
--- NOTE | 2022-04-23 18:37 | NUR ---
RN NOTE PATIENT IN BED ASLEEP. NO SIGNS OF ACUTE DISTRESS NOTED, BREATHING EVEN AND UNLABORED, DENIES ANY PAIN OR DISCOMFORT. ALL DUE MEDS GIVEN, TOLERATED WELL. COMPLIANT WITH MEDS. ACCUCHECKS DONE,NO S/SX OF HYPO/HYPERGLYCEMIA NOTED. SAFETY MEASURE MAINTAINED. WILL ENDORSE TO NEXT SHIFT FOR CONTINUITY OF CARE.
[2022-04-23 20:56] VITALS: BP 109/86
[2022-04-23] MEDS: GABAPENTIN 300 MG CAPSULE PO SCH (21:03)
[2022-04-24] MEDS: ZOLPIDEM TARTRATE 5 MG TABLET PO PRN ×2 (00:22→21:54)
[2022-04-24] MEDS: BLOOD SUGAR DIAGNOSTIC 1 EACH STRIP IN SCH ×4 (07:33→21:32)
[2022-04-24] MEDS: INSULIN REGULAR, HUMAN 100 UNIT/ML 3 ML VIAL SQ PRN ×4 (07:33→21:45)
[2022-04-24 08:00] VITALS: BP 103/52
[2022-04-24] MEDS: DOCUSATE SODIUM 100 MG CAPSULE PO SCH (08:39)
[2022-04-24] MEDS: DIVALPROEX SODIUM 500 MG TABLET.DR PO SCH ×2 (08:39→20:19)
[2022-04-24] MEDS: OLANZAPINE 2.5 MG TABLET PO SCH ×2 (08:39→21:31)
[2022-04-24] MEDS: MULTIVITAMIN/LUTEIN/MINERALS 1 TAB PO SCH (08:39)
--- NOTE | 2022-04-24 09:00 | NUR ---
RN NOTE- RECEIVED PATIENT IN BED, ASLEEP, EASILY AROUSED.NO SIGNS OF ACUTE DISTRESS NOTED. BREATHING EVEN AND UNLABORED. PT WITHDRAWN, ISOLATIVE, PARANOID, BLUNTED AFFECT, MED COMPLIANT,
[2022-04-24] MEDS ORDERED: OLANZAPINE 2.5 MG TABLET PO SCH (09:30)
[2022-04-24 16:04] VITALS: BP 96/56
[2022-04-24 19:27] VITALS: BP 101/58
[2022-04-24] MEDS: LORAZEPAM 0.5 MG TABLET PO PRN (20:30)
[2022-04-24] MEDS: GABAPENTIN 300 MG CAPSULE PO SCH (21:31)
[2022-04-25 08:00] VITALS: BP_SYST 100; BP_SYST 132; BP_DIAS 62; BP_DIAS 76
[2022-04-25] MEDS: BLOOD SUGAR DIAGNOSTIC 1 EACH STRIP IN SCH ×4 (08:07→21:48)
[2022-04-25] MEDS: DIVALPROEX SODIUM 500 MG TABLET.DR PO SCH ×2 (08:52→21:21)
[2022-04-25] MEDS: DOCUSATE SODIUM 100 MG CAPSULE PO SCH (08:52)
[2022-04-25] MEDS: MULTIVITAMIN/LUTEIN/MINERALS 1 TAB PO SCH (08:52)
[2022-04-25] MEDS: INSULIN REGULAR, HUMAN 100 UNIT/ML 3 ML VIAL SQ PRN ×2 (18:10→21:48)
[2022-04-25 19:46] VITALS: BP 107/72
[2022-04-25] MEDS: OLANZAPINE 2.5 MG TABLET PO SCH (21:18)
[2022-04-25] MEDS: GABAPENTIN 300 MG CAPSULE PO SCH (21:18)
[2022-04-26] MEDS: LORAZEPAM 0.5 MG TABLET PO PRN (03:17)
[2022-04-26] MEDS: BLOOD SUGAR DIAGNOSTIC 1 EACH STRIP IN SCH ×4 (07:36→21:18)
[2022-04-26 08:00] VITALS: BP 140/70
--- NOTE | 2022-04-26 10:16 | NUR ---
Court Notification: Notified pt's daughter Sheri ([phone]) of 5250 hearing, left a voicemail.
[2022-04-26] MEDS: DOCUSATE SODIUM 100 MG CAPSULE PO SCH (10:27)
[2022-04-26] MEDS: DIVALPROEX SODIUM 500 MG TABLET.DR PO SCH (10:27)
[2022-04-26] MEDS: MULTIVITAMIN/LUTEIN/MINERALS 1 TAB PO SCH (10:27)
[2022-04-26] MEDS: DIVALPROEX SODIUM 125 MG CAP.SPRINK PO SCH ×3 (12:41→20:52)
--- NOTE | 2022-04-26 13:42 | NUR ---
Court Hearing: Patient's court hearing for 0370 was today and it was upheld for GD.
[2022-04-26 16:00] VITALS: BP 121/74
--- NOTE | 2022-04-26 18:32 | NUR ---
RN-NOTES PATIENT IN THE ROOM INTERMITTENTLY SLEEPING WITH BREATHING EVEN AND NONLABORED EASILY AROUSED. A/O X1.NOTED PATIENT WITH GUARDED,SELECTIVELY MUTE. NEEDS MODERATE ASSIST WITH ADL'S. COMPLIANT WITH MEDICATIONS.ALL NEEDS ATTENDED AND ANTICIPATED. WILL CONT. MONITORING FOR SAFETY AND BEHAVIOR.WILL ENDORSE TO [id number] NURSE FOR CONTINUITY OF CARE.
--- NOTE | 2022-04-26 19:57 | NUR ---
GPS BILLING ANALYST NOTES RECEIVED LAYING ON BED, A/O X1,FLAT AFFECT,AVOIDS EYE CONTACT. BREATHING EVEN AND UNLABORED WITH NO S/SX OF RESP DISTRESS, V/S NOTED WNL. BED @ LOWEST POSITION ., SR'S UP FOR SAFETY MEASURES, EDUCATED PT WITH USE OF BEDSIDE CALL LIGHT. FAMILY X 1 VISITED, AND SPOKE WITH CHARGE NURSE OJ- LIME FILTER OPERATOR NURSE ANSWERED FAMILY'S CONCERN AND QUESTIONS. NOC CNAS PROVIDED PT PM CARE. WILL CONTINUE TO MONITOR BEHAVIOR AND SAFETY
[2022-04-26 20:00] VITALS: BP 128/75
[2022-04-26] MEDS: GABAPENTIN 300 MG CAPSULE PO SCH (21:19)
[2022-04-26] MEDS: OLANZAPINE 2.5 MG TABLET PO SCH (21:20)
[2022-04-26] MEDS: INSULIN REGULAR, HUMAN 100 UNIT/ML 3 ML VIAL SQ PRN (21:20)
--- NOTE | 2022-04-26 21:50 | NUR ---
DUE MEDS GIVEN TO PT, PT COMPLIANT WITH HIS MEDS, ACCU CHECK DONE BS NOTED 92, NO INSULIN COVERAGE NEEDED. WILL CONT TO MONITOR AND ANTICIPATE NEEDS.
--- NOTE | 2022-04-27 01:10 | NUR ---
PT IN HIS BED,SLEEPING, EASY TO AROUSE, BREATHING EVEN AND UNLABORED. SAFETY MEASURES OBSERVED. WILL CONT TO MONITOR.
--- NOTE | 2022-04-27 06:05 | NUR ---
PT REMAINS IN HIS BED, AM CARE PROVIDED BY CNAS, TOLERATED WELL BY PT, PT SLEPT APPROX TOTAL OF 6 HRS DURING SHIFT, AND TOLERATED MEDICATIONS. NO SIGNIFICANT CHANGE OF CONDITION NOTED. SAFETY MEASURES OBSERVED. CONT TO MONITOR AND WILL ENDORSE CONTINUATION OF CARE TO AM ONCOMING NURSE.
[2022-04-27] MEDS: BLOOD SUGAR DIAGNOSTIC 1 EACH STRIP IN SCH ×4 (07:41→22:43)
[2022-04-27 08:00] VITALS: BP 125/78
[2022-04-27] MEDS: DOCUSATE SODIUM 100 MG CAPSULE PO SCH (09:04)
[2022-04-27] MEDS: DIVALPROEX SODIUM 125 MG CAP.SPRINK PO SCH ×4 (09:04→21:53)
[2022-04-27] MEDS: MULTIVITAMIN/LUTEIN/MINERALS 1 TAB PO SCH (09:04)
[2022-04-27 16:00] VITALS: BP 99/64
[2022-04-27] MEDS: INSULIN REGULAR, HUMAN 100 UNIT/ML 3 ML VIAL SQ PRN ×2 (17:04→22:44)
--- NOTE | 2022-04-27 19:25 | NUR ---
RN-NOTES PATIENT IN THE THE HALLWAY UP IN THE [place]EL[place] CHAIR. A/O X1.NOTED PATIENT WITH GUARDED,SELECTIVELY MUTE. NEEDS MODERATE ASSIST WITH ADL'S. COMPLIANT WITH MEDICATIONS.ALL NEEDS ATTENDED AND ANTICIPATED. WILL CONT. MONITORING FOR SAFETY AND BEHAVIOR.WILL ENDORSE TO [id number] NURSE FOR CONTINUITY OF CARE.
--- NOTE | 2022-04-27 19:45 | NUR ---
PHOTOGRAPH FINISHER NOTES: RECEIVED PT IN HALLWAY IN [place]ELICA CHAIR. A/O X1. CALM. ON ROOM AIR. BREATHING EVEN AND UNLABORED. NO ACUTE DISTRESS NOTED. NO S/S OF PAIN OR DISCOMFORT. SAFETY MEASURES IN PLACE. WILL CONTINUE TO MONITOR FOR SAFETY AND BEHAVIOR.
[2022-04-27 20:00] VITALS: BP 103/69
[2022-04-27] MEDS: GABAPENTIN 300 MG CAPSULE PO SCH (21:53)
[2022-04-27] MEDS: OLANZAPINE 2.5 MG TABLET PO SCH (21:54)
--- NOTE | 2022-04-27 22:45 | NUR ---
BUSINESS RISK ANALYST NOTES: ACCU-CHECK DONE. BS 119. NO COVERAGE GIVEN.
--- NOTE | 2022-04-28 07:00 | NUR ---
TROUT FARMER NOTES: PT IN HIS ROOM SLEEPING. EASILY AROUSED. CALM AND COMFORTABLE. NO ACUTE DISTRESS NOTED. ALL NEEDS ANTICIPATED AND RENDERED. SAFETY MEASURES IN PLACE. WILL ENDORSE TO ONCOMING SHIFT FOR CONTINUITY OF CARE.
[2022-04-28] MEDS: BLOOD SUGAR DIAGNOSTIC 1 EACH STRIP IN SCH ×4 (07:44→21:46)
[2022-04-28 08:00] VITALS: BP 110/59
[2022-04-28] MEDS: DIVALPROEX SODIUM 125 MG CAP.SPRINK PO SCH ×4 (08:59→20:44)
[2022-04-28] MEDS: DOCUSATE SODIUM 100 MG CAPSULE PO SCH (08:59)
[2022-04-28] MEDS: MULTIVITAMIN/LUTEIN/MINERALS 1 TAB PO SCH (08:59)
[2022-04-28 16:00] VITALS: BP 99/63
[2022-04-28 19:41] VITALS: BP 100/68
[2022-04-28 20:13] VITALS: BP 100/68
[2022-04-28] MEDS: GABAPENTIN 300 MG CAPSULE PO SCH (21:05)
[2022-04-28] MEDS: OLANZAPINE 2.5 MG TABLET PO SCH (21:43)
[2022-04-28] MEDS: INSULIN REGULAR, HUMAN 100 UNIT/ML 3 ML VIAL SQ PRN (21:56)
[2022-04-29] MEDS: LORAZEPAM 0.5 MG TABLET PO PRN (02:18)
--- NOTE | 2022-04-29 04:45 | NUR ---
FLAT AFFECT, CONFUSED, RESTLESS, WANDERING UNIT IN DIAPERS. TOOK ALL PM MEDS, CRUSHED WITH APPLE SAUCE, GIVEN ATIVAN, SLEPT FOR 1 HOUR, WOKE UP AND WANDERING AGAIN.
[2022-04-29] MEDS: INSULIN REGULAR, HUMAN 100 UNIT/ML 3 ML VIAL SQ PRN (07:38)
[2022-04-29] MEDS: BLOOD SUGAR DIAGNOSTIC 1 EACH STRIP IN SCH (07:38)
[2022-04-29 08:00] VITALS: BP 106/59
[2022-04-29] MEDS: MULTIVITAMIN/LUTEIN/MINERALS 1 TAB PO SCH (08:24)
[2022-04-29] MEDS: DIVALPROEX SODIUM 125 MG CAP.SPRINK PO SCH ×4 (08:24→21:33)
[2022-04-29] MEDS: DOCUSATE SODIUM 100 MG CAPSULE PO SCH (08:24)
--- NOTE | 2022-04-29 12:04 | NUR ---
RN-CO: DR CRAWFORD ORDERED TO [facility] and ordered metformin 500 mg po bid noted and carried out.
[2022-04-29 16:00] VITALS: BP 90/69
[2022-04-29] MEDS: METFORMIN 500 MG TABLET PO SCH (16:16)
[2022-04-29 20:33] VITALS: BP 103/71
[2022-04-29] MEDS: GABAPENTIN 300 MG CAPSULE PO SCH (21:34)
[2022-04-29] MEDS: OLANZAPINE 2.5 MG TABLET PO SCH (22:09)
[2022-04-30 08:00] VITALS: BP 112/75
[2022-04-30] MEDS: DIVALPROEX SODIUM 125 MG CAP.SPRINK PO SCH ×4 (08:40→20:43)
[2022-04-30] MEDS: MULTIVITAMIN/LUTEIN/MINERALS 1 TAB PO SCH (08:40)
[2022-04-30] MEDS: DOCUSATE SODIUM 100 MG CAPSULE PO SCH (08:40)
[2022-04-30] MEDS: METFORMIN 500 MG TABLET PO SCH ×2 (08:40→16:59)
[2022-04-30 16:00] VITALS: BP 102/57
[2022-04-30 20:16] VITALS: BP 118/76
[2022-04-30] MEDS: GABAPENTIN 300 MG CAPSULE PO SCH (21:13)
[2022-04-30] MEDS: OLANZAPINE 2.5 MG TABLET PO SCH (21:13)
[2022-04-30] MEDS: LORAZEPAM 0.5 MG TABLET PO PRN (21:53)
[2022-04-30] MEDS: ZOLPIDEM TARTRATE 5 MG TABLET PO PRN (23:10)
[2022-05-01 08:00] VITALS: BP 104/52
[2022-05-01] MEDS: MULTIVITAMIN/LUTEIN/MINERALS 1 TAB PO SCH (08:46)
[2022-05-01] MEDS: DOCUSATE SODIUM 100 MG CAPSULE PO SCH (08:46)
[2022-05-01] MEDS: DIVALPROEX SODIUM 125 MG CAP.SPRINK PO SCH ×4 (08:46→21:01)
[2022-05-01] MEDS: METFORMIN 500 MG TABLET PO SCH ×2 (08:46→16:15)
--- NOTE | 2022-05-01 10:53 | NUR ---
TRACI Family Contact: TRACI contacted pt's daughter Sheri ([phone]) and left a detailed voicemail that pt will be returning back to [facility] on 05/02/2022
[2022-05-01 16:00] VITALS: BP 108/65
[2022-05-01 20:20] VITALS: BP 108/79
[2022-05-01] MEDS: OLANZAPINE 2.5 MG TABLET PO SCH (21:01)
[2022-05-01] MEDS: GABAPENTIN 300 MG CAPSULE PO SCH (21:01)
[2022-05-02] MEDS: ZOLPIDEM TARTRATE 5 MG TABLET PO PRN (00:05)
--- NOTE | 2022-05-02 07:48 | NUR ---
SW Discharge Note: Patient will be discharged to a locked retirement facility to [facility]Note 3] [address] [place] [address]; ([phone]). Please arrange ambulance transportation. Shoe Folder spoke with Janeth, Stripping Shovel Operator at [facility][Note 3]; ([phone]), who stated patient will be accepted at facility today. Patients daughter Sheri ([phone]) is aware and agreeable. Patient is alert and oriented x2, and is not able to plan for self-care at this time, but is willing to accept care provided for care at the facility. Patient denies any suicidal or homicidal ideations. Patient is aware and agreeable with discharge plans. Patient will continue to follow-up with her (Psychiatrist ) Dr. Gutierrez [address] [facility] [address], [place] [address]; ([phone]) and Passenger Conductor Dr. Contreras [address] [facility] [address], [place] [address]; ([phone]). Patient presents with euthymic mood and congruent affect.
[2022-05-02 08:00] VITALS: BP 108/74
[2022-05-02] MEDS: DOCUSATE SODIUM 100 MG CAPSULE PO SCH (08:34)
[2022-05-02] MEDS: METFORMIN 500 MG TABLET PO SCH (08:34)
[2022-05-02] MEDS: DIVALPROEX SODIUM 125 MG CAP.SPRINK PO SCH ×2 (08:34→12:11)
[2022-05-02] MEDS: MULTIVITAMIN/LUTEIN/MINERALS 1 TAB PO SCH (08:34)
--- NOTE | 2022-05-02 10:16 | NUR ---
RN-CO: DR CARRERA SEEN PATIENT VIA FACE TIME ORDERED TO DISCONTINUE HOLD AND DISCHARGE PATIENT TO [facility]. PATIENT REMAINS CALM AND COOPERATIVE TO CARE, NO AGGRESSION NOTED. NO S/S OF PAIN AND DISCOMFORTS. BY THE HELP OF ITALIAN SPEAKING STAFF, PATIENT DENIED SUICIDAL AND HOMICIDAL IDEATION AND COMMAND HALLUCINATION.
--- NOTE | 2022-05-02 13:05 | NUR ---
RN-CO: REPORT WAS GIVEN BY PRIMARY RN TO "DANIEL" SALO.
--- NOTE | 2022-05-02 14:24 | NUR ---
RN DC NOTE: 1411- PT IS STABLE FOR DC, ON RA WITH NO S/S OF SOB OR ACUTE DISTRESS. NO S/S OF AGGRESSIVE BEHAVIOR. REPORT GIVEN TO SALO MADERA FROM [facility]. PT LEFT UNIT @ 1411 VIA [employer], TRANSPORTATION IS [facility], [id number], STEAMFITTER APPRENTICE AWARE.
== END 2022-05-02 13:15 | DRG 885 ==
LOC: ER 16:10 → GPS 21:06
PROVIDERS: ADMIT Psychiatry & Neurology Psychiatry
DX: F31.9 Bipolar disorder, unspecified (principal); F02.83 Dementia in other diseases classified elsewhere, unspecified severity, with mood disturbance; F25.0 Schizoaffective disorder, bipolar type; E11.9 Type 2 diabetes mellitus without complications; G20 Parkinson's disease; I10 Essential (primary) hypertension; Z91.83 Wandering in diseases classified elsewhere; G62.9 Polyneuropathy, unspecified
CPT/HCPCS: 36415; 80048-TC; 80053-TC; 80061-TC; 80076-TC; 80164-TC; 82962-TC; 85025-TC; 87081-TC; C9803; G0480; J1815

== ENCOUNTER 2022-07-06 11:33 | Emergency (ER) | payer MEDICARE, OTHER ==
[~2022-07-06] VITALS: Ht 170.2 cm; Wt 80.7 kg
[~2022-07-06 11:33] MED LIST changes: +ACET-2605 PO; +DEXT38GE12 PO; +DIVA125C2 PO; +GLUC1KIT IM; +MAG30ORA PO; +MAGN400O6 PO; +MELA3TAB41 PO; +MULT-447 PO; +OLAN2.5T3 PO
--- NOTE | 2022-07-06 11:50 | NUR ---
BIBA FOR GLF AND ALOC. A/O X 0
--- NOTE | 2022-07-06 12:05 | NUR ---
MOVE SHEET SUBMITTED.
--- NOTE | 2022-07-06 12:10 | NUR ---
COVID SWAB OBTAINED
--- NOTE | 2022-07-06 12:10 | NUR ---
URINE SAMPLE OBTAINED
--- NOTE | 2022-07-06 12:10 | NUR ---
Tiarra castrejon in [facility] - 07/06/22 at 1210 by WICHO urine sample obtained
--- NOTE | 2022-07-06 12:10 | NUR ---
BLOOD SAMPLES OBTAINED
--- NOTE | 2022-07-06 12:13 | NUR ---
PATIENT TAKEN TO CT BY MELANY [facility]IA [facility]
[2022-07-06 12:16] LABS: BASOPHILS % (AUTO) 0.3 % (0.0-2.0); EOSINOPHILS % (AUTO) 0.9 % (0.0-6.0); HEMATOCRIT 42 % (39-51); HEMOGLOBIN 13.8 g/dL (13.5-17.5); LYMPHOCYTES # (AUTO) 1.8 K/uL (0.8-4.8); MEAN CORPUSCULAR HGB CONC 33 g/dl (31.0-36.0); MEAN CORPUSCULAR VOLUME 94 fL (80-96); MONOCYTES # (AUTO) 0.4 K/uL (0.1-1.30); MONOCYTES % (AUTO) 7.9 % (2.0-12.0); NEUTROPHILS # (AUTO) 2.6 K/uL (1.8-8.9); NEUTROPHILS % (AUTO) 53.9 % (43.0-81.0); PLATELET COUNT (AUTO) 181 K/uL (150-450); RED BLOOD CELL COUNT(AUTO) 4.49 MIL/uL (4.5-6.0); WHITE BLOOD COUNT (AUTO) 4.8 K/uL (4.3-11.0)
[2022-07-06 12:26] LABS: BILIRUBIN,URINE NEGATIVE (NEGATIVE); COLOR,URINE YELLOW (YELLOW); LEUKOCYTE ESTERASE ,URINE NEGATIVE (NEGATIVE); NITRITE, URINE NEGATIVE (NEGATIVE); PROTEIN,URINE NEGATIVE (NEGATIVE); UGLUCOSE NEGATIVE (NEGATIVE); UROBILINOGEN,URINE 0.2 EU/dL (0.2)
[2022-07-06 12:30] LABS: SERUM AMMONIA 29 umol/L (11-32)
[2022-07-06 12:35] LABS: ALANINE AMINOTRANSFERASE 31 U/L (12-78); ALBUMIN 3.7 g/dL (3.4-5.0); ALKALINE PHOSPHATASE 67 U/L (46-116); ASPARTATE AMINOTRANSFERASE 18 U/L (15-37); BILIRUBIN,DIRECT 0.1 mg/dL (0.0-0.2); BILIRUBIN,TOTAL 0.4 mg/dL (0.2-1.0); CALCIUM, SERUM 9.2 mg/dL (8.5-10.1); CARBON DIOXIDE 32 mmol/L (21-32); CHLORIDE 107 mmol/L (98-107); GLUCOSE 112 mg/dL (74-106); POTASSIUM 3.8 mmol/L (3.5-5.1); SODIUM SERUM 144 mmol/L (136-145); TOTAL PROTEIN, SERUM 7.7 g/dL (6.4-8.2); UREA NITROGEN, BLOOD 27 mg/dL (7-18)
[2022-07-06 12:39] LABS: ACETAMINOPHEN < 10 ug/ml (10-30); ALCOHOL, BLOOD < 3 mg/dL (0-0)
[2022-07-06 12:42] LABS: THYROID STIMULATING HORMONE 2.042 uIU/mL (0.358-3.74)
[2022-07-06] MEDS ORDERED: AMIN30LI2 GT (13:08)
[2022-07-06] MEDS ORDERED: METF-440 PO (13:08)
[2022-07-06] MEDS ORDERED: POLY15DR40 EACHEYE (13:08)
--- NOTE | 2022-07-06 13:50 | NUR ---
CALLED [facility] FOR TRANSPORT ETA 45 MINS.
--- NOTE | 2022-07-06 15:28 | NUR ---
TRANSPORT AT BEDSIDE
[2022-07-06 16:10] VITALS: BP 112/64
--- NOTE | 2022-07-06 16:10 | NUR ---
Patient discharged from hospital via stretcher accompanied by 2 hospital medicine director. IV removed. Catheter intact and site benign. Pressure and 4x4 applied to site. No bleeding noted.
== END 2022-07-06 16:11 | disposition home or self-care (01) ==
LOC: ER 11:48
DX: S00.81XA Abrasion of other part of head, initial encounter (principal); F03.90 Unspecified dementia, unspecified severity, without behavioral disturbance, psychotic disturbance, mood disturbance, and anxiety; G20 Parkinson's disease; G93.40 Encephalopathy, unspecified; K72.90 Hepatic failure, unspecified without coma; E11.40 Type 2 diabetes mellitus with diabetic neuropathy, unspecified; R45.1 Restlessness and agitation; Z79.899 Other long term (current) drug therapy; Z79.4 Long term (current) use of insulin; Z79.84 Long term (current) use of oral hypoglycemic drugs; W19.XXXA Unspecified fall, initial encounter; Y93.89 Activity, other specified; Y92.89 Other specified places as the place of occurrence of the external cause; Y99.8 Other external cause status
CPT/HCPCS: 36415; 70450-TC; 71045-TC; 80048-TC; 80076-TC; 82140-TC; 82962-TC; 83605-TC; 84443-TC; 84484-TC; 85025-TC; 87040-TC; C9803; G0480

== ENCOUNTER 2024-03-07 13:38 | Emergency (ER) | payer MEDICARE, OTHER ==
[~2024-03-07] VITALS: Ht 170.2 cm; Wt 66.2 kg
[~2024-03-07 13:38] MED LIST changes: +AMIN30LI2 GT; -BISA5TAB10 PO; -BUSP5TAB3 PO; -MELA3TAB41 PO; +METF-440 PO; -MIRT-90 PO; -MULT-754 PO; +POLY15DR40 EACHEYE
[2024-03-07 13:40] VITALS: BP 106/58; TEMP 97.9; O2SAT 97
[2024-03-07] MEDS ORDERED: CLIN300C12 PO (15:11)
[2024-03-07] MEDS ORDERED: IBUP-1955 PO (15:11)
== END 2024-03-07 16:06 ==
LOC: ER 13:42
DX: M25.571 Pain in right ankle and joints of right foot (principal); M25.471 Effusion, right ankle; M79.89 Other specified soft tissue disorders; L30.9 Dermatitis, unspecified; E11.9 Type 2 diabetes mellitus without complications; F02.80 Dementia in other diseases classified elsewhere, unspecified severity, without behavioral disturbance, psychotic disturbance, mood disturbance, and anxiety; G20.A1 Parkinson's disease without dyskinesia, without mention of fluctuations; F29 Unspecified psychosis not due to a substance or known physiological condition; G93.49 Other encephalopathy; Z79.84 Long term (current) use of oral hypoglycemic drugs; Z86.79 Personal history of other diseases of the circulatory system; Z87.19 Personal history of other diseases of the digestive system
CPT/HCPCS: 73610-TC; 93971-TC

== ENCOUNTER 2024-06-23 07:16 | Inpatient (IN) | payer MEDICARE, OTHER ==
[~2024-06-23] VITALS: Ht 165.1 cm; Wt 60.1 kg
[~2024-06-23 07:16] MED LIST changes: +CLIN300C12 PO; +IBUP-1955 PO
[2024-06-23] MEDS: IV NS 0.9% 1,000 ML BAG IV ONE (07:46)
[2024-06-23 07:56] LABS: BASOPHILS % (AUTO) 0.4 % (0.0-2.0); EOSINOPHILS % (AUTO) 0.8 % (0.0-6.0); HEMATOCRIT 45 % (39-51); HEMOGLOBIN 14.9 g/dL (13.5-17.5); LYMPHOCYTES # (AUTO) 2.2 K/uL (0.8-4.8); LYMPHOCYTES % (AUTO) 41.2 % (20.0-44.0); MEAN CORPUSCULAR HEMOGLOBIN 31 PG (26.0-33.0); MEAN CORPUSCULAR HGB CONC 33 g/dl (31.0-36.0); MEAN CORPUSCULAR VOLUME 94 fL (80-96); MONOCYTES # (AUTO) 0.2 K/uL (0.1-1.30); NEUTROPHILS # (AUTO) 2.9 K/uL (1.8-8.9); NEUTROPHILS % (AUTO) 53.6 % (43.0-81.0); PLATELET COUNT (AUTO) 186 K/uL (150-450); RED BLOOD CELL COUNT(AUTO) 4.75 MIL/uL (4.5-6.0); RED CELL DISTRIBUTION WIDTH 14.4 % (11.5-15.0); WHITE BLOOD COUNT (AUTO) 5.4 K/uL (4.3-11.0)
[2024-06-23] MEDS ORDERED: IBUP-1955 PO (08:08)
[2024-06-23] MEDS ORDERED: DIPH25TA27 PO (08:08)
[2024-06-23] MEDS ORDERED: TRIA80CR12 TP (08:08)
[2024-06-23 08:10] LABS: CALCIUM, SERUM 8.8 mg/dL (8.5-10.1); CREATININE 0.8 mg/dL (0.6-1.3); POTASSIUM 4.2 mmol/L (3.5-5.1)
[2024-06-23 08:19] LABS: APPEARANCE,URINE CLEAR (CLEAR); BILIRUBIN,URINE NEGATIVE (NEGATIVE); BLOOD, URINE NEGATIVE Ery/uL (NEGATIVE); COLOR,URINE YELLOW (YELLOW); KETONES,URINE TRACE mg/dL (NEGATIVE); LEUKOCYTE ESTERASE ,URINE NEGATIVE (NEGATIVE); NITRITE, URINE NEGATIVE (NEGATIVE); PH,URINE 5.5 (5.0-8.0); PROTEIN,URINE NEGATIVE (NEGATIVE); UGLUCOSE NEGATIVE (NEGATIVE); UROBILINOGEN,URINE 0.2 EU/dL (0.2)
[2024-06-23 08:46] LABS: ADD URINE CULTURE NO; BACTERIA,URINE Rare /HPF (None Seen); RBC,URINE 0-2 /HPF (0-2); SQUAMOUS EPITHELIAL CELL,UR 0-2 /HPF (None Seen); WBC,URINE 0-2 /HPF (0-3)
[2024-06-23 11:30] VITALS: BP 118/66; TEMP 97.3; O2SAT 100
[2024-06-23] MEDS ORDERED: TRIAMCINOLONE ACETONIDE 0.1% CR 15 GM TUBE TP PRN (11:30)
[2024-06-23] MEDS ORDERED: Z GUARD REMEDY 4 OZ OINT TP PRN (11:30)
[2024-06-23] MEDS ORDERED: ACETAMINOPHEN ES 500 MG TABLET PO PRN (11:30)
[2024-06-23] MEDS ORDERED: ZOLPIDEM TARTRATE 5 MG TABLET PO PRN (11:30)
[2024-06-23] MEDS ORDERED: GLUTOSE 15 G GEL..GM. PO PRN (11:30)
[2024-06-23] MEDS ORDERED: IBUPROFEN 600 MG TABLET PO PRN (11:30)
[2024-06-23] MEDS ORDERED: DOCUSATE SODIUM 100 MG CAPSULE PO PRN (11:30)
[2024-06-23] MEDS ORDERED: MAG HYDROX/AL HYDROX/SIMETH 30 ML UDC PO PRN ×2 (11:30)
[2024-06-23] MEDS ORDERED: ACETAMINOPHEN 325 MG TABLET PO PRN ×2 (11:30)
[2024-06-23] MEDS ORDERED: ONDANSETRON HCL/PF 4 MG/2 ML VIAL IVP PRN (11:30)
[2024-06-23] MEDS ORDERED: MAGNESIUM HYDROXIDE 30 ML UDC PO PRN ×2 (11:30)
[2024-06-23] MEDS: ENOXAPARIN SODIUM 40 MG/0.4 ML DISP.SYRIN SQ SCH (15:21)
[2024-06-23] MEDS: DIVALPROEX SODIUM 125 MG CAP.SPRINK PO SCH (15:22)
[2024-06-23] MEDS: LEVETIRACETAM (500MG) 500 MG in IV NS 0.9% 100 ML IV SCH (15:28)
[2024-06-23] MEDS ORDERED: LORAZEPAM INJ 2 MG/ML VIAL IV PRN (15:30)
[2024-06-23 16:00] VITALS: BP 94/55; TEMP 98.1; O2SAT 95
[2024-06-23 16:52] LABS: THYROID STIMULATING HORMONE 0.95 uIU/mL (0.358-3.74)
[2024-06-23 17:00] VITALS: BP 110/62; TEMP 98; O2SAT 98
[2024-06-23] MEDS: METFORMIN 500 MG TABLET PO SCH (17:38)
[2024-06-23] MEDS: POLYVINYL ALCOHOL 15 ML BOTTLE EACHEYE SCH (17:39)
[2024-06-23] MEDS: VALPROATE 1,000 MG in IV D5W 100 ML IV ONE (17:59)
[2024-06-23] MEDS ORDERED: GLUCAGON,HUMAN RECOMBINANT 1 MG/VIAL VIAL IM PRN (21:30)
[2024-06-23] MEDS: GABAPENTIN 300 MG CAPSULE PO SCH (21:39)
[2024-06-23 21:49] VITALS: BP 99/55; TEMP 97.7; O2SAT 98
[2024-06-24 00:36] VITALS: BP 111/73; TEMP 97.8; O2SAT 98
[2024-06-24 04:47] VITALS: BP 110/72; TEMP 97.2; O2SAT 98
[2024-06-24 07:00] LABS: BASOPHILS % (AUTO) 0.2 % (0.0-2.0); EOSINOPHILS # (AUTO) 0.1 K/uL (0.0-0.7); HEMATOCRIT 41 % (39-51); HEMOGLOBIN 13.6 g/dL (13.5-17.5); LYMPHOCYTES # (AUTO) 1.7 K/uL (0.8-4.8); LYMPHOCYTES % (AUTO) 29.3 % (20.0-44.0); MEAN CORPUSCULAR HEMOGLOBIN 31 PG (26.0-33.0); MEAN CORPUSCULAR HGB CONC 33 g/dl (31.0-36.0); MEAN CORPUSCULAR VOLUME 94 fL (80-96); MONOCYTES # (AUTO) 0.5 K/uL (0.1-1.30); MONOCYTES % (AUTO) 9.2 % (2.0-12.0); NEUTROPHILS # (AUTO) 3.6 K/uL (1.8-8.9); NEUTROPHILS % (AUTO) 60.3 % (43.0-81.0); PLATELET COUNT (AUTO) 157 K/uL (150-450); RED BLOOD CELL COUNT(AUTO) 4.37 MIL/uL (4.5-6.0); RED CELL DISTRIBUTION WIDTH 14.1 % (11.5-15.0)
[2024-06-24 07:05] LABS: CALCIUM, SERUM 8.5 mg/dL (8.5-10.1); CREATININE 0.7 mg/dL (0.6-1.3); MAGNESIUM 2.2 mg/dL (1.8-2.4); PHOSPHORUS 3.5 mg/dL (2.5-4.9); POTASSIUM 3.5 mmol/L (3.5-5.1)
[2024-06-24 08:00] VITALS: BP 110/52; TEMP 97.5; O2SAT 98
[2024-06-24] MEDS: MULTIVIT W/MINERALS 1 TAB TABLET PO SCH (08:38)
[2024-06-24] MEDS: PANTOPRAZOLE 40 MG TABLET.DR PO SCH (08:38)
[2024-06-24] MEDS: DIVALPROEX SODIUM 125 MG CAP.SPRINK PO SCH (08:38)
[2024-06-24] MEDS ORDERED: LEVETIRACETAM (500MG) 1,000 MG in PREMIX 90 EA IV ONE (11:30)
[2024-06-24 11:33] VITALS: BP 98/55; TEMP 97.5; O2SAT 93
[2024-06-24] MEDS: LEVETIRACETAM (500MG) 500 MG in IV NS 0.9% 100 ML IV ONE (11:50)
[2024-06-24 12:07] LABS: FOLIC ACID 11.8 ng/mL (>3.0)
[2024-06-24 16:00] VITALS: BP 114/68; TEMP 97.9; O2SAT 99
[2024-06-24 20:00] VITALS: BP 123/67; TEMP 97.7; O2SAT 99
[2024-06-24] MEDS ORDERED: LEVETIRACETAM (500MG) 500 MG/5 ML VIAL IV ONE (22:10)
[2024-06-24] MEDS: LEVETIRACETAM (500MG) 1,000 MG in IV NS 0.9% 100 ML IV SCH (22:22)
[2024-06-24] MEDS: diphenhydrAMINE HCL 25 MG CAPSULE PO PRN (22:37)
[2024-06-25] VITALS: BP 114/71; TEMP 97.7; O2SAT 98
[2024-06-25 05:00] VITALS: BP 101/67; TEMP 98.1; O2SAT 99
[2024-06-25 06:47] LABS: BASOPHILS % (AUTO) 0.2 % (0.0-2.0); EOSINOPHILS % (AUTO) 0.8 % (0.0-6.0); HEMATOCRIT 39 % (39-51); HEMOGLOBIN 13.1 g/dL (13.5-17.5); LYMPHOCYTES # (AUTO) 1.3 K/uL (0.8-4.8); LYMPHOCYTES % (AUTO) 24.5 % (20.0-44.0); MEAN CORPUSCULAR HEMOGLOBIN 31 PG (26.0-33.0); MEAN CORPUSCULAR HGB CONC 34 g/dl (31.0-36.0); MEAN CORPUSCULAR VOLUME 93 fL (80-96); MONOCYTES # (AUTO) 0.3 K/uL (0.1-1.30); MONOCYTES % (AUTO) 6.6 % (2.0-12.0); NEUTROPHILS # (AUTO) 3.6 K/uL (1.8-8.9); NEUTROPHILS % (AUTO) 67.9 % (43.0-81.0); PLATELET COUNT (AUTO) 162 K/uL (150-450); RED BLOOD CELL COUNT(AUTO) 4.21 MIL/uL (4.5-6.0); WHITE BLOOD COUNT (AUTO) 5.3 K/uL (4.3-11.0)
[2024-06-25 07:33] LABS: CALCIUM, SERUM 8.8 mg/dL (8.5-10.1); CREATININE 0.8 mg/dL (0.6-1.3); PHOSPHORUS 3.2 mg/dL (2.5-4.9); POTASSIUM 3.5 mmol/L (3.5-5.1)
[2024-06-25 08:00] VITALS: BP 108/69; TEMP 97.9; O2SAT 99
[2024-06-25 12:00] VITALS: BP 100/60; TEMP 98.1; O2SAT 97
[2024-06-25 16:00] VITALS: BP 96/67; TEMP 98.6; O2SAT 96
[2024-06-25 20:30] VITALS: BP 108/69; TEMP 97.3; O2SAT 99
[2024-06-26 08:00] VITALS: BP 109/74; TEMP 98.3; O2SAT 97
[2024-06-26] MEDS ORDERED: DIVA125C2 PO (09:35)
[2024-06-26] MEDS ORDERED: LEVE1000 PO (09:35)
[2024-06-26 13:22] VITALS: BP 93/62; TEMP 97.5; O2SAT 96
[2024-06-26] MEDS ORDERED: DIVA500T2 PO (13:57)
[2024-06-26 17:09] LABS: VITAMIN B1 THIAMINE,WB 108.5 nmol/L (66.5-200.0)
[2024-06-26] MEDS ORDERED: LEVETIRACETAM (250 MG) 250 MG TABLET PO SCH (21:00)
== END 2024-06-26 17:46 | DRG 101 ==
LOC: ER 07:17 → TELE 10:01 → MED 06-25 13:23 → TELE 06-26
PROVIDERS: ADMIT Student in an Organized Health Care Education/Training Program; ATTEND Student in an Organized Health Care Education/Training Program
DX: R56.9 Unspecified convulsions (principal); F02.83 Dementia in other diseases classified elsewhere, unspecified severity, with mood disturbance; F02.84 Dementia in other diseases classified elsewhere, unspecified severity, with anxiety; Z86.73 Personal history of transient ischemic attack (TIA), and cerebral infarction without residual deficits; G20.A1 Parkinson's disease without dyskinesia, without mention of fluctuations; F32.A Depression, unspecified; F20.9 Schizophrenia, unspecified; G47.00 Insomnia, unspecified; I10 Essential (primary) hypertension; Z79.84 Long term (current) use of oral hypoglycemic drugs; F41.9 Anxiety disorder, unspecified; E11.42 Type 2 diabetes mellitus with diabetic polyneuropathy; L30.9 Dermatitis, unspecified; I70.90 Unspecified atherosclerosis
CPT/HCPCS: 36415; 70450-TC; 71045-TC; 80048-TC; 80164-TC; 81001; 82607-TC; 83735-TC; 83921; 84100-TC; 84425; 84443-TC; 85025-TC; 87086-TC; 95819-TC; A4223; G0378; J1650; J1953; J3490; J7030; J7050; J7060; Q0163

== ENCOUNTER 2024-09-25 09:24 | Inpatient (IN) | payer MEDICARE, OTHER ==
[~2024-09-25] VITALS: Ht 165.1 cm; Wt 64.0 kg
[~2024-09-25 09:24] MED LIST changes: -AMIN30LI2 GT; -CLIN300C12 PO; +DIPH25TA27 PO; -DIVA125C2 PO; -INSU100V3 SQ; -OLAN2.5T3 PO; +TRIA80CR12 TP
[2024-09-25 10:02] LABS: BASOPHILS % (AUTO) 0.3 % (0.0-2.0); EOSINOPHILS % (AUTO) 0.4 % (0.0-6.0); HEMATOCRIT 39 % (39-51); LYMPHOCYTES # (AUTO) 1.3 K/uL (0.8-4.8); MEAN CORPUSCULAR HEMOGLOBIN 31 PG (26.0-33.0); MEAN CORPUSCULAR HGB CONC 34 g/dl (31.0-36.0); MEAN CORPUSCULAR VOLUME 93 fL (80-96); MONOCYTES # (AUTO) 0.2 K/uL (0.1-1.30); MONOCYTES % (AUTO) 5.6 % (2.0-12.0); NEUTROPHILS # (AUTO) 2.6 K/uL (1.8-8.9); NEUTROPHILS % (AUTO) 62.7 % (43.0-81.0); PLATELET COUNT (AUTO) 123 K/uL (150-450); RED BLOOD CELL COUNT(AUTO) 4.13 MIL/uL (4.5-6.0); RED CELL DISTRIBUTION WIDTH 13.9 % (11.5-15.0); WHITE BLOOD COUNT (AUTO) 4.2 K/uL (4.3-11.0)
[2024-09-25 10:10] LABS: CALCIUM, SERUM 8.8 mg/dL (8.5-10.1); CARBON DIOXIDE 26 mmol/L (21-32); CHLORIDE 106 mmol/L (98-107); CREATININE 1.1 mg/dL (0.6-1.3); GLUCOSE 154 mg/dL (74-106); SODIUM SERUM 139 mmol/L (136-145); UREA NITROGEN, BLOOD 19 mg/dL (7-18)
[2024-09-25 10:22] LABS: ALANINE AMINOTRANSFERASE 18 U/L (12-78); ALKALINE PHOSPHATASE 70 U/L (46-116); ASPARTATE AMINOTRANSFERASE 15 U/L (15-37); BILIRUBIN,DIRECT 0.1 mg/dL (0.0-0.2); BILIRUBIN,TOTAL 0.7 mg/dL (0.2-1.0); NT-PRO BNP 115 pg/mL (0-125); TOTAL PROTEIN, SERUM 7.2 g/dL (6.4-8.2)
[2024-09-25] MEDS ORDERED: LEVE1000 PO (10:27)
[2024-09-25] MEDS ORDERED: CETI10TA14 PO (10:27)
[2024-09-25] MEDS ORDERED: ACET-2030 PO (10:27)
[2024-09-25] MEDS ORDERED: DIVA125C2 PO (10:27)
[2024-09-25] MEDS ORDERED: PANT40TA2 PO (10:27)
[2024-09-25] MEDS ORDERED: CRAN400C PO (10:27)
[2024-09-25 12:00] VITALS: BP 94/61; TEMP 98.1
[2024-09-25] MEDS ORDERED: MAGNESIUM HYDROXIDE 30 ML UDC PO PRN (12:00)
[2024-09-25] MEDS ORDERED: MAG HYDROX/AL HYDROX/SIMETH 30 ML UDC PO PRN (12:00)
[2024-09-25] MEDS ORDERED: ONDANSETRON HCL/PF 4 MG/2 ML VIAL IVP PRN (12:00)
[2024-09-25] MEDS ORDERED: ACETAMINOPHEN 325 MG TABLET PO PRN (12:00)
[2024-09-25] MEDS ORDERED: Z GUARD REMEDY 4 OZ OINT TP PRN (12:00)
[2024-09-25] MEDS: DIVALPROEX SODIUM 125 MG CAP.SPRINK PO SCH (13:15)
[2024-09-25] MEDS: LEVETIRACETAM (500MG) 1,000 MG in IV NS 0.9% 90 ML IV SCH (13:15)
[2024-09-25 16:00] VITALS: BP 117/77; TEMP 97.7; O2SAT 98
[2024-09-25] MEDS: IV NS 0.9% 1,000 ML IV PRN (19:30)
[2024-09-25 20:00] VITALS: BP 93/81; TEMP 98.4; O2SAT 97
[2024-09-25] MEDS: GABAPENTIN 100 MG CAPSULE PO SCH (21:29)
[2024-09-26] VITALS: BP 104/68; TEMP 98.4; O2SAT 97
[2024-09-26 04:00] VITALS: BP 123/76; TEMP 96.8; O2SAT 96
[2024-09-26 06:37] LABS: BASOPHILS % (AUTO) 0.2 % (0.0-2.0); EOSINOPHILS % (AUTO) 0.4 % (0.0-6.0); HEMATOCRIT 41 % (39-51); HEMOGLOBIN 13.7 g/dL (13.5-17.5); LYMPHOCYTES # (AUTO) 2.3 K/uL (0.8-4.8); LYMPHOCYTES % (AUTO) 37.7 % (20.0-44.0); MEAN CORPUSCULAR HEMOGLOBIN 32 PG (26.0-33.0); MEAN CORPUSCULAR HGB CONC 33 g/dl (31.0-36.0); MEAN CORPUSCULAR VOLUME 96 fL (80-96); MONOCYTES # (AUTO) 0.6 K/uL (0.1-1.30); MONOCYTES % (AUTO) 9.2 % (2.0-12.0); NEUTROPHILS # (AUTO) 3.2 K/uL (1.8-8.9); NEUTROPHILS % (AUTO) 52.5 % (43.0-81.0); PLATELET COUNT (AUTO) 126 K/uL (150-450); RED CELL DISTRIBUTION WIDTH 14.4 % (11.5-15.0); WHITE BLOOD COUNT (AUTO) 6.1 K/uL (4.3-11.0)
[2024-09-26 06:47] LABS: CALCIUM, SERUM 8.5 mg/dL (8.5-10.1); CREATININE 0.7 mg/dL (0.6-1.3); MAGNESIUM 2.4 mg/dL (1.8-2.4); PHOSPHORUS 3.6 mg/dL (2.5-4.9); POTASSIUM 3.5 mmol/L (3.5-5.1)
[2024-09-26 08:00] VITALS: BP 105/70; TEMP 97.7
[2024-09-26] MEDS: DOCUSATE SODIUM 100 MG CAPSULE PO SCH (09:17)
[2024-09-26] MEDS: PANTOPRAZOLE 40 MG TABLET.DR PO SCH (09:17)
[2024-09-26] MEDS: MULTIVIT W/MINERALS 1 TAB TABLET PO SCH (09:18)
[2024-09-26 11:18] LABS: THYROID STIMULATING HORMONE 1.12 uIU/mL (0.358-3.74)
[2024-09-26 12:00] VITALS: BP 108/65; TEMP 97.5
[2024-09-26 14:02] LABS: APPEARANCE,URINE CLEAR (CLEAR); BILIRUBIN,URINE NEGATIVE (NEGATIVE); BLOOD, URINE NEGATIVE Ery/uL (NEGATIVE); COLOR,URINE YELLOW (YELLOW); KETONES,URINE NEGATIVE (NEGATIVE); LEUKOCYTE ESTERASE ,URINE NEGATIVE (NEGATIVE); NITRITE, URINE NEGATIVE (NEGATIVE); PROTEIN,URINE NEGATIVE (NEGATIVE); UGLUCOSE NEGATIVE (NEGATIVE); UROBILINOGEN,URINE 0.2 EU/dL (0.2)
[2024-09-26 16:00] VITALS: BP 101/63; TEMP 97.7; O2SAT 98
[2024-09-26 20:00] VITALS: BP 103/66; TEMP 98.2; O2SAT 96
[2024-09-27] VITALS: BP 121/72; TEMP 98.1; O2SAT 100
[2024-09-27 04:00] VITALS: BP 103/85; TEMP 97.7; O2SAT 97
[2024-09-27 06:49] LABS: BASOPHILS % (AUTO) 0.4 % (0.0-2.0); EOSINOPHILS # (AUTO) 0.1 K/uL (0.0-0.7); EOSINOPHILS % (AUTO) 1.1 % (0.0-6.0); HEMATOCRIT 36 % (39-51); LYMPHOCYTES # (AUTO) 1.8 K/uL (0.8-4.8); LYMPHOCYTES % (AUTO) 37.7 % (20.0-44.0); MEAN CORPUSCULAR HEMOGLOBIN 31 PG (26.0-33.0); MEAN CORPUSCULAR HGB CONC 33 g/dl (31.0-36.0); MEAN CORPUSCULAR VOLUME 94 fL (80-96); MONOCYTES # (AUTO) 0.4 K/uL (0.1-1.30); MONOCYTES % (AUTO) 7.8 % (2.0-12.0); NEUTROPHILS # (AUTO) 2.6 K/uL (1.8-8.9); PLATELET COUNT (AUTO) 136 K/uL (150-450); RED BLOOD CELL COUNT(AUTO) 3.86 MIL/uL (4.5-6.0); RED CELL DISTRIBUTION WIDTH 13.9 % (11.5-15.0); WHITE BLOOD COUNT (AUTO) 4.9 K/uL (4.3-11.0)
[2024-09-27 07:00] LABS: CALCIUM, SERUM 8.4 mg/dL (8.5-10.1); CREATININE 0.7 mg/dL (0.6-1.3); POTASSIUM 3.5 mmol/L (3.5-5.1)
[2024-09-27 08:00] VITALS: BP 117/53; TEMP 97.7; O2SAT 97
[2024-09-27 11:11] LABS: FOLIC ACID 12.8 ng/mL (>3.0)
[2024-09-27 12:00] VITALS: BP 117/53; TEMP 97.7; O2SAT 97
[2024-09-27 16:00] VITALS: BP 103/63; TEMP 98.1; O2SAT 97
[2024-09-27 20:00] VITALS: BP 116/72; TEMP 98.8; O2SAT 94
[2024-09-27] MEDS: LEVETIRACETAM SOL (5 ML) 100 MG/ML UDC PO SCH (21:04)
[2024-09-28 05:00] VITALS: BP 123/76; TEMP 98; O2SAT 98
[2024-09-28 08:00] VITALS: BP 125/66; TEMP 97.5; O2SAT 92
[2024-09-28] MEDS ORDERED: LEVE100S PO (10:35)
[2024-09-28 13:00] VITALS: BP 125/66; TEMP 97.5; O2SAT 92
== END 2024-09-28 18:56 | DRG 100 ==
LOC: ER 09:26 → TELE1 10:38 → MEDSG1 09-26 22:41
PROVIDERS: ADMIT Nurse Practitioner Acute Care; ATTEND Nurse Practitioner Acute Care
DX: G40.909 Epilepsy, unspecified, not intractable, without status epilepticus (principal); G92.8 Other toxic encephalopathy; E44.0 Moderate protein-calorie malnutrition; F02.83 Dementia in other diseases classified elsewhere, unspecified severity, with mood disturbance; G20.A1 Parkinson's disease without dyskinesia, without mention of fluctuations; G30.9 Alzheimer's disease, unspecified; E78.5 Hyperlipidemia, unspecified; E86.0 Dehydration; E88.09 Other disorders of plasma-protein metabolism, not elsewhere classified; F31.9 Bipolar disorder, unspecified; I10 Essential (primary) hypertension; Z79.4 Long term (current) use of insulin; Z68.23 Body mass index [BMI] 23.0-23.9, adult; F20.9 Schizophrenia, unspecified; E11.65 Type 2 diabetes mellitus with hyperglycemia
CPT/HCPCS: 36415; 70450-TC; 71045-TC; 80048-TC; 80076-TC; 80164-TC; 80177; 82607-TC; 82962-TC; 83735-TC; 83880; 83921; 84100-TC; 84425; 84443-TC; 84484-TC; 85025-TC; 92526; 92611-TC; 97110-TC; 97530-TC; A4223; G0378; J1953; J3490; J7030